=== PATIENT | female | born 1995 | race American Indian/Alaskan Native ===

== ENCOUNTER 2018-03-22 10:33 | Inpatient (IN) | payer OTHER ==
[2018-03-22] MEDS ORDERED: ceFAZolin 2 GM in Sodium Chloride 0.9% 100 ML IVPB ONE (11:05)
[2018-03-22] MEDS ORDERED: Lactated Ringer's 1,000 ML IV ONE ×2 (11:05→11:10)
[2018-03-22] MEDS ORDERED: Lactated Ringer's 1,000 ML IV SCH (11:15)
[2018-03-22] MEDS ORDERED: ceFAZolin IV 2 gm in Dextrose 2 GM/50 ML BAG IVPB ONE (11:30)
[2018-03-22] MEDS ORDERED: Oxytocin 30 units/LR 500ML 30 U/500 ML BAG IV ONE (11:40)
[2018-03-22 11:43] LABS: BASO % 0.2 % (0.0-2.0); EOS % 0.3 % (0.0-4.0); LYMPH # 2.9 K/uL (1.0-4.3); LYMPH % 23.4 % (20.0-40.0); MEAN CORPUSCULAR HEMOGLOBIN 29.9 pg (27.0-31.0); MEAN CORPUSCULAR HGB CONC 33.2 g/dL (33.0-37.0); MEAN PLATELET VOLUME 8.6 fl (7.2-11.7); MONO % 8.5 % (0.0-10.0); NEUT # 8.4 K/uL (1.8-7.0); NEUT % 67.6 % (50.0-75.0); RBC 4.03 Mil/uL (3.80-5.20); RED CELL DISTRIBUTION WIDTH 14.8 % (11.5-14.5); WHITE BLOOD COUNT 12.4 K/uL (4.8-10.8)
[2018-03-22 11:51] LABS: ALB/GLOB RATIO 1.1 (1.0-2.1); ALT/SGPT 17 U/L (9-52); AST/SGOT 22 U/L (14-36); BLOOD UREA NITROGEN 7 mg/dl (7-17); CALCIUM 9.7 mg/dL (8.4-10.2); GFR AFRICAN-AMERICAN > 60; GFR NON-AFRICAN AMERICAN > 60
[2018-03-22] MEDS ORDERED: Phenylephrine 10 mg/ml Inj ONE (11:52)
[2018-03-22] MEDS ORDERED: ePHEDrine 50 mg/ml Inj ONE (11:52)
[2018-03-22] MEDS ORDERED: Morphine 5 mg/10 ml preservative-free Inj(Duramorph) ONE (11:52)
[2018-03-22] MEDS ORDERED: DiphenhydrAMINE 50 mg/ml Inj ONE (13:13)
[2018-03-22] MEDS ORDERED: DiphenhydrAMINE 50 mg/ml Inj IVP PRN (13:34)
[2018-03-22] MEDS ORDERED: Oxycodone/Acetaminophen 5/325 mg Tab PO PRN ×2 (13:40)
--- NOTE | 2018-03-22 15:24 | OBPN ---
Datetime: 03/22/2018 15:19 IP Progress Note Comment: Called to see patient due to tachycardia. Patient resting comfortably with out complaints. Patient denies any pain, shortness of breath, chest pain. Abdomen soft, nondistended, nontender Uterus firm, below umbilicus No heavy vaginal bleeding exteriorly Plan to bolus 1 L lactated Ringer's, check CBC, continue close observation Discussed plan with patient and all patient questions answered. Datetime: 03/22/2018 11:14 Vital Signs Provider: Reviewed Vital Signs Provider Details: BP 137/71 Dilatation, Provider: 5 Effacement, Provider: 80
--- NOTE | 2018-03-22 15:24 | OBADHP ---
Datetime: 03/22/2018 11:14 Admit Comment, IP Provider: Patient is with GONSALO 04/01/18 based on patients recollection of LM P 06/24/18, patient had 1 U/S throughout brought no records with her and denies re ceiving care throughout the . Patient came in complaining of contractions since mon, denies vaginal bleeding, denies loss of fluid. States movement ok. Denies H/A, N/V, Dizzin ess, Swelling. Patient states she didnt receive care due to not wanting the baby and it was too late to abort. 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 Stat C section based on no records with possible labor 2. Monitor tracings 3. CBC, CMP, Urine drug screen, RPR, Rubella, HIV, HBsag, Type and screen 4. Social work referral - no care Addendum: at approximately 38 weeks gestational age in active labor. Patient with prior . Pat ient with no care during this . heart tracing category 1. Discussed with patient options and recommended delivery due to prior and activ e labor. Discussed with patient the risks, benefits, alternatives of surgery and all patient question s answered. Patient consented for . Anesthesia notified. [place] Abdomen - PN: Normal Back - PN: Not Done Breast - PN: Not Done Lungs - PN: Normal Heart - PN: Normal Thyroid - PN: Not Done Neurologic - PN: Normal HEENT - PN: Normal General - PN: Normal Comments, ACOG Physical Exam: Low transverse C section scar Vital Signs Provider: Reviewed Vital Signs Provider Details: BP 137/71 IP Chief Complaint: Uterine contractions Dilatation, Provider: 5 Effacement, Provider: 80 IP Adm Impression: Intact Membranes IP Admit Plan: Admit to unit; Initiate Section protocol
--- NOTE | 2018-03-22 15:41 | OBDS ---
DELIVERY PERSONNEL Delivery Doctor: Delmis Mullen MD Scrub Nurse: Ashtyn Dennis Fretted Instrument Maker Hand: Mary Ellen Hernandes RN Resident: Dr. Fu MATERNAL INFORMATION Delivery Anesthesia: Spinal Medications in Delivery: Pitocin 30 units Estimated Blood Loss (ml): 800 Placenta Cultured: No Maternal Complications: Other RN Comments: No care repeat c/s in labor Provider Comments: Repeat low flap transverse section via Pfannenstiel incision. Patient delivered viable infant male with Apgars of 9 and 9 at one and 5 minutes respectively. Mod erate to severe amount of intra-abdominal and pelvic adhesions. Normal uterus, normal tubes and ovari es bilaterally. Estimated blood loss 800 mL Fluids 1500 mL lactated Ringer's Urine output 400 mL of clear urine No complications LABOR SUMMARY No. Babies in Womb: 1 Attempted: No Labor Anesthesia: None LABOR INFORMATION Reason for Induction: Not Applicable Onset of Labor: 03/22/2018 07:00 Oxytocin: N/A Group B Beta Strep: Not Done Steroids Given: None Reason Steroids Not Administered: Not Applicable MEMBRANES Membranes Rupture Method: Artificial Rupture of Membranes: 03/22/2018 12:53 Length of Rupture (hrs): 0.03 Amniotic Fluid Color: Clear Amniotic Fluid Amount: Small Amniotic Fluid Odor: Normal STAGES OF LABOR Stage 3 hrs: 0 Stage 3 min: 1 Total Time in Labor hrs: 5 Total Time in Labor min: 56 CSECTION DELIVERY Primary Indication: Repeat Elective Other Primary Indication: no care previous section CSection Urgency: Emergency CSection Incidence: Repeat Labor: Labor Elective: Elective CSection Incision: Lower Uterine Transverse Uterine Closure: Double-layer closure BABY A INFORMATION Delivery Date/Time: 03/22/2018 12:55 Method of Delivery: Born in Route : No : N/A Forceps: N/A SHOULDER DYSTOCIA BABY A Delivery Date/Time: 03/22/2018 12:55 PRESENTATION/POSITION BABY A Presentation: Cephalic Cephalic Presentation: Vertex Breech Presentation: N/A PLACENTA INFORMATION BABY A Placenta Delivery Time : 03/22/2018 12:56 Placenta Method of Delivery: Spontaneous Placenta Status: Delivered SCORES BABY A Heart Rate 1 min: >100 bpm Resp Effort 1 min: Good Cry Reflex Irritability 1 min: Cough or Sneeze or Pulls Away Muscle Tone 1 min: Active Motion Color 1 min: Body [place], Extremities Blue Resuscitation Effort 1 min: Tactile Stimulation SCORE 1 MIN: 9 Heart Rate 5 min: >100 bpm Resp Effort 5 min: Good Cry Reflex Irritability 5 min: Cough or Sneeze or Pulls Away Muscle Tone 5 min: Active Motion Color 5 min: Body [place], Extremities Blue Resuscitation Effort 5 min: Tactile Stimulation SCORE 5 MIN: 9 INFANT INFORMATION BABY A Infant Outcome : Liveborn Infant Condition : Stable Infant Sex: Male IDENTIFICATION/MEDS BABY A ID Band Number: [id number] ID Band Location: Left Leg; Left Arm WEIGHT/LENGTH BABY A Infant Birthweight (gms): 3680 Infant Weight (lb): 8 Infant Weight (oz): 2 CORD INFORMATION BABY A No. Cord Vessels: 2 Nuchal Cord : Around Neck x1, Loose Infant Cord pH Baby Arterial: 7.29 Cord Blood Taken: N/A Suction: None ASSESSMENT BABY A Infant Complications Other: No care Physical Findings at Delivery: Within Normal Limits Infant Respirations: Intercostal Retractions Hris Specialist/ALS Called : No Infant Care By: Dr. Toth Transferred To: [facility]
[2018-03-22 15:51] LABS: BASO # 0.1 K/uL (0.0-0.2); BASO % 0.4 % (0.0-2.0); EOS % 0.1 % (0.0-4.0); HEMOGLOBIN 11.1 g/dL (12.0-16.0); LYMPH # 1.7 K/uL (1.0-4.3); LYMPH % 12.2 % (20.0-40.0); MEAN CELL VOLUME 89.3 fl (81.0-99.0); MEAN CORPUSCULAR HEMOGLOBIN 29.9 pg (27.0-31.0); MEAN CORPUSCULAR HGB CONC 33.5 g/dL (33.0-37.0); MEAN PLATELET VOLUME 9.2 fl (7.2-11.7); MONO # 0.6 K/uL (0.0-0.8); MONO % 3.9 % (0.0-10.0); NEUT # 11.8 K/uL (1.8-7.0); NEUT % 83.4 % (50.0-75.0); NRBC % 0.1 % (0.0-0.0); RBC 3.7 Mil/uL (3.80-5.20); RED CELL DISTRIBUTION WIDTH 14.8 % (11.5-14.5); WHITE BLOOD COUNT 14.1 K/uL (4.8-10.8)
[2018-03-22 18:12] LABS: SQUAMOUS EPITHIAL < 1 /hpf (0-5); URINE BILIRUBIN NEGATIVE (NEGATIVE); URINE BLOOD SMALL (NEGATIVE); URINE CLARITY SLIGHTY-CLOUDY (Clear); URINE COLOR YELLOW (YELLOW); URINE GLUCOSE (UA) NEG (Normal); URINE LEUKOCYTE ESTERASE NEG Leu/uL (Negative); URINE PROTEIN NEGATIVE (NEGATIVE); URINE UROBILINOGEN 0.2-1.0 mg/dL (0.2-1.0)
[2018-03-22 18:46] LABS: BARBITURATES, UR NEGATIVE (NEGATIVE); BENZODIAZEPINES, UR NEGATIVE (NEGATIVE); OPIATES, UR NEGATIVE (NEGATIVE); PHENCYCLIDINE, UR NEGATIVE (NEGATIVE)
[2018-03-22] MEDS ORDERED: Iodixanol 320 MG/ML 100 ML BOTTLE IV ONE (19:42)
[2018-03-22] MEDS ORDERED: Sodium Chloride 0.9% 50 ML IV ONE (19:42)
[2018-03-23] MEDS: Simethicone 80 mg Chewtab PO SCH ×4 (01:14→21:24)
[2018-03-23 06:59] LABS: MEAN CELL VOLUME 90.1 fl (81.0-99.0); MEAN CORPUSCULAR HGB CONC 33.3 g/dL (33.0-37.0); RBC 3.32 Mil/uL (3.80-5.20); RED CELL DISTRIBUTION WIDTH 14.9 % (11.5-14.5); WHITE BLOOD COUNT 19.4 K/uL (4.8-10.8)
--- NOTE | 2018-03-23 08:39 | OBPPN ---
Datetime: 03/23/2018 07:20 PP Pain Prov: Within normal limits PP Nausea Prov: Denies PP Flatus Prov: No PP BM Prov: No PP Heart Prov: Normal PP Lungs Prov: Normal PP Abdomen/Uterus Prov: Normal PP CVA Tenderness Prov: Normal PP Impression Prov: Normal progression PP Plan Prov: Continue present management PP Progress Note Prov: 23 y/o sp 03/22/2018 @ 12:55pm with no care. Lochia like menses, pain wel controlled with meds, tolerating liquid diet, -flatus, -BM. Patient HR <110bpm with most recent vitals obtained. Patient is bottled feeding. Patient denied any f/c/n/v/d. Gen: female laying in bed Cardio: s1s2 auscultated Resp: clear b/l Abd: BS+ Ext: nontender A/P:23 y/o sp 03/22/2018 @ 12:55pm 1. encouraged. 2. Ambulation as tolerated. 3. Anticipated discharge is 03/25/2018. Case discussed with OB attending Angelica Montalvo PGY-1 OB Hospitalist Addendum: Pt seen and examined by me. Agree w/ above. POD 1 s/p repeat c/s, doing well, bottle feeding. Continue current care. (ES) Vital Signs Provider PP: Reviewed
[2018-03-23] MEDS ORDERED: Multivitamin With Minerals Tab PO SCH (09:00)
--- NOTE | 2018-03-23 10:51 | CT ---
Date of service: 03/22/2018 PROCEDURE: CT Chest with contrast (Pulmonary Angiogram) HISTORY: Tachycardia COMPARISON: None available. TECHNIQUE: Axial computed tomography images were obtained of the chest in the pulmonary arterial phase of enhancement. Coronal and sagittal reformatted images were created and reviewed. Intravenous contrast dose: 90 mL Visipaque 320 Radiation dose: Total exam DLP = 372.1 mGy-cm. This CT exam was performed using one or more of the following dose reduction techniques: Automated exposure control, adjustment of the mA and/or kV according to patient size, and/or use of iterative reconstruction technique. FINDINGS: PULMONARY ARTERIES: Suboptimal opacification of pulmonary arteries. No gross central pulmonary embolus. AORTA: No acute findings. No thoracic aortic aneurysm. LUNGS: Unremarkable. No nodule, mass or pulmonary consolidation. PLEURAL SPACES: Unremarkable. No effusion or pneumothorax. HEART: Unremarkable. No cardiomegaly. No significant pericardial effusion. LYMPH NODES: No lymphadenopathy. BONES, CHEST WALL: Unremarkable. No fracture or destructive lesion OTHER FINDINGS: Small hiatal hernia. IMPRESSION: Suboptimal opacification of the pulmonary arteries. No gross central pulmonary embolism. No focal consolidation or pleural effusion
[2018-03-23] MEDS ORDERED: Oxycodone/Acetaminophen 5/325 mg Tab PO PRN (11:18)
[2018-03-23] MEDS ORDERED: DiphenhydrAMINE 50 mg/ml Inj IVP PRN (11:18)
[2018-03-23 12:35] LABS: HEPATITIS B SURFACE AG Negative (NEGATIVE)
--- NOTE | 2018-03-23 14:13 | OP ---
PROCEDURE DATE: 03/22/2018 PREOPERATIVE DIAGNOSIS: Active labor, prior section. POSTOPERATIVE DIAGNOSIS: Active labor, prior section. OPERATION PERFORMED: Repeat low-flap transverse section via Pfannenstiel incision. OPERATIVE FINDINGS: Viable infant with Apgars of 9 and 9 at one and five minutes respectively. Normal uterus, normal tubes, and ovaries bilaterally. [id number] intraabdominal and pelvic adhesions. ESTIMATED BLOOD LOSS: 800 mL. FLUIDS: 1500 mL of lactated Ringer's. URINE OUTPUT: 400 mL of clear urine at the end of the procedure. COMPLICATIONS: No complications. SURGEON: Mega Mullen M.D. ANESTHESIOLOGIST: Dr. Mas. ANESTHESIA: Spinal. DESCRIPTION OF PROCEDURE: The patient was taken to the operating room, where spinal anesthesia was found to be adequate. The patient was prepped and draped in normal sterile fashion in the dorsal supine position with leftward tilt. A Pfannenstiel skin incision was made with the scalpel. This was carried down through to the underlying layer of fascia with scalpel. Midline dissection was made in the fascial layer with a scalpel. The fascial incision was then extended bilaterally sharply with curved Kennedy scissors. The fascial layer was from the underlying rectus muscles, both bluntly and sharply with curved Kennedy scissors. The rectus muscles were at the midline. The peritoneum was then identified, tented upward with Giselle clamps x2, and entered sharply with Metzenbaum scissors. This peritoneal incision was then extended superiorly and inferiorly with good visualization of the urinary bladder. Bladder blade was inserted into the abdomen. The vesicouterine peritoneum was then identified, tented up with Giselle clamps x2, and entered sharply with Metzenbaum scissors. This peritoneal incision was then extended bilaterally with Metzenbaum scissors. The bladder flap was created digitally. The Milly retractor was placed over the urinary bladder. The uterus was incised with the scalpel. The uterine incision was extended bilaterally bluntly. The infant's head was delivered atraumatically. Nose and mouth were suctioned with bulb suction. The remainder of the was delivered without complication. The cord was clamped and cut. The was handed off to awaiting pediatricians. Cord gases were collected. Cord blood was collected. The placenta was removed manually. The uterus was cleared of all clots and debris. The uterine incision was repaired with 0 Vicryl in a running, locked fashion. The second layer of same suture was used to imbricate the first and to obtain excellent hemostasis. The abdomen and pelvis were irrigated with copious amounts of warm normal saline. Reinspection of the uterine incision proved excellent hemostasis. All instruments were removed from the patient. The peritoneal layer was closed with a running stitch of 2-0 chromic. The rectus muscles were re-approximated in the midline with a running stitch of 2-0 chromic. The fascial layer was closed with a running stitch of 0 Vicryl. Subcutaneous tissue was re-approximated with a running stitch of 3-0 plain. The skin was closed with simeon. The patient tolerated the procedure well. All sponge count, lap count, and needle counts were correct x2. The patient was given 2 gm of Ancef just prior to the beginning of the procedure. There were no complications. The patient was taken to the recovery room in awake and stable condition. Mega Mullen MD
[2018-03-23] MEDS: Oxycodone/Acetaminophen 5/325 mg Tab PO PRN (16:49)
[2018-03-24] MEDS: Simethicone 80 mg Chewtab PO SCH ×4 (04:56→21:07)
[2018-03-24] MEDS: Multivitamin With Minerals Tab PO SCH (08:23)
--- NOTE | 2018-03-24 09:09 | OBPPN ---
Datetime: 03/24/2018 06:38 PP Pain Prov: Within normal limits PP Nausea Prov: Denies PP Flatus Prov: Yes PP BM Prov: No PP Breasts Prov: Not Done PP Heart Prov: Normal PP Lungs Prov: Normal PP Abdomen/Uterus Prov: Normal PP Lochia Prov: Normal PP Vulva/Perineum Prov: Not Done PP CVA Tenderness Prov: Not Done PP Extremities Prov: Normal PP C/S Incision Prov: Normal PP Impression Prov: Normal progression PP Plan Prov: Continue present management PP Progress Note Prov: POD 2 S: 23 y/o female s/p repeat c section on 03/22/18 for seen and evaluated post op day 2. No overnight events. Pt reports mild abdominal pain, but well controlled with Motrin. Ambulating without dizziness/ lightheadedness/palpitations. without difficulty. Lochia is similar to mens es volume. No BM but passing gas per rectum. Denies fever/chills, diarrhea, nausea/vomiting, chest pa in, dyspnea, and dizziness. Tolerating liquid/regular diet. Undecided about circumcision for baby boy . O: VS: Tachycardia ranging from 88-113. BP wnl, afebrile GEN: NAD Cardio: S1S2, no murmurs Lungs: clear breath sounds b/l, no wheezing Abdomen: BS+, appropriate tenderness to palpation. Incision closed with clean margins, no erythema or discharge. Uterus is firm and at the level of the umbilicus. Appropriate tenderness EXT: No edema, calves nontender NEURO/PSYCH: AAOx3, no grossly focal deficits, preserved affect and mood. Post op H/H: 11.1/33.1 Assessment/Plan: 23 y/o female s/p repeat c section on 03/22/18 ,doing well on POD2. Pt rem ains afebrile, tolerating pain with medication. Pt has been consistently tachycardic during hospital stay. EKG Sinus tachy, CTA negative for PE. Social work evaluated patient given poor care an d remarks of not wanting baby. Pt is contemplating adoption but is undecided at this moment. She was given contact info for [facility] agency by SW. SW also left voicemail for [facility] with regards to t he patient. Case closed by social work. Discussed importance if contraception with patient. Anticipat ing discharge on 03/25/18. SCDs for DVT prophylaxis, encouraged ambulating Percocet 5/325mg q4 and Motrin 600mg po q6 for pain as per pain scale [place] 17.2mg po QHS Sunny PGY2 Attending Note: Patient was seen at her bedside and I agree with the above assessment. Vital Signs Provider PP: Reviewed; Within Normal Limits
[2018-03-24] MEDS: Oxycodone/Acetaminophen 5/325 mg Tab PO PRN (12:38)
[2018-03-25] MEDS: Oxycodone/Acetaminophen 5/325 mg Tab PO PRN ×2 (01:38→08:50)
[2018-03-25] MEDS: Simethicone 80 mg Chewtab PO SCH ×2 (05:03→10:59)
[2018-03-25] MEDS: Multivitamin With Minerals Tab PO SCH (08:50)
[2018-03-25] MEDS ORDERED: Measles, Mumps, and Rubella 0.5 ML VIAL SC ONE (10:00)
[2018-03-25] MEDS ORDERED: Tdap Vaccine 0.5 ml Vial (10-64 yrs) IM ONE (10:00)
--- NOTE | 2018-03-25 14:30 | OBDCSUM ---
Datetime: 03/25/2018 10:59 Discharged to, Provider: Home Follow up at, Provider: [facility] Disch Instr Activity: Normal activity Disch Instr Diet: Regular Discharge Instructions, Provider: Routine instructions given Discharge Diagnosis, Provider: Term Delivered Discharge Time: 03/25/2018 10:59 Follow up in weeks, Provider: 1 week Contraception discussed, Prov: Yes Disch Activity Restrictions: No lifting; No sexual activity; Nothing in vagina - [place], tampon s, douche Discharge Comment, Provider: 23 yo , s/p of viable male on 03/22/18 at 1255, weight 3680g, APGARS: 9/9. Stable and doing well on POD 3. Discharge instructions: Continue PNV 1 tab PO/day Ibuprofen 600 mg 1 tab Q6h PRN if moderate pain, Percocet 5-325 mg 1 tab Q6 hrs if severe pain, Se nnokot or Colace OTC for constipation. Ambulate with caution, nothing per vagina for 6 weeks (i.e. no tampons, no sexual intercourse), no heavy lifting. If excessive bleeding, or fever without relief from tylenol, go to ED. Do not drive w hile taking Percocet. Follow up with [facility] in 1 week for wound check, and in 4-6 weeks for visi t. If you prefer, you can also follow up in the family medicine clinic at [facility] in [place] at [address] Call [phone] for appointment in 1 week. Discharge Diagnosis Prov Other: S/P uncomplicated section, POD #3. Clinically Staable Contraception after Delivery: Undecided
[2018-03-25 19:16] VITALS: BP 128/75; PULSE 82; RESP 20; TEMP 98.7; O2SAT 98
--- NOTE | 2018-03-26 11:47 | CARD ---
APPROVED REPORT Date of service: 03/22/2018 EKG Measurement Heart [id number] <Conclusion> Sinus tachycardia Otherwise normal ECG
== END 2018-03-25 14:58 | disposition home or self-care (01) | DRG 371 ==
LOC: H.EROB2 10:33 → H.EROB 10:56 → H.EROB2 11:09 → H.EROB 11:10 → H.OB/GYN 03-23 10:19
PROVIDERS: ADMIT Obstetrics & Gynecology; ATTEND Obstetrics & Gynecology
PROC: 10D00Z1 Extraction of Products of Conception, Low, Open Approach (ICD-10-PCS; principal; 2018-03-22)
PROC: 4A1HXCZ Monitoring of Products of Conception, Cardiac Rate, External Approach (ICD-10-PCS; 2018-03-22)
DX: O34.211 Maternal care for low transverse scar from previous cesarean delivery (principal); N85.8 Other specified noninflammatory disorders of uterus; O69.81X0 Labor and delivery complicated by cord around neck, without compression, not applicable or unspecified; O99.89 Other specified diseases and conditions complicating pregnancy, childbirth and the puerperium; N73.6 Female pelvic peritoneal adhesions (postinfective); Z37.0 Single live birth; Z3A.38 38 weeks gestation of pregnancy